=== PATIENT | female | born 1955 | race Caucasian/White ===

== ENCOUNTER 2022-03-30 19:05 | Inpatient (IN) ==
[2022-03-30] MEDS ORDERED: Naloxone 0.4 MG/ML INJ IVP PRN (22:11)
[2022-03-30] MEDS ORDERED: Melatonin 3 MG TABLET PO PRN (22:11)
[2022-03-30] MEDS ORDERED: Ondansetron ODT 4 MG TAB.RAPDIS SL PRN (22:11)
[2022-03-30] MEDS ORDERED: 0.9 % Sodium Chloride 1,000 ML IVC SCH (22:15)
[2022-03-30] MEDS ORDERED: *HR* HYDROmorphone (PF) 1 MG/ML SYRINGE IVP ONE (22:42)
[2022-03-30] MEDS ORDERED: *HR* Dextrose 50 % in Water (Syg) 50 ML SYRINGE IVP PRN (23:48)
[2022-03-30] MEDS ORDERED: D5% in Water 1,000 ML IVC PRN (23:48)
[2022-03-30] MEDS ORDERED: Dextrose Gel 15 GM/37.5 ML TUBE PO PRN ×2 (23:48)
[2022-03-31] MEDS: Insulin LISPRO 300 UNITS/3 ML VIAL SUBQ SCH ×4 (01:07→18:11)
[2022-03-31] MEDS ORDERED: *HR* HYDROmorphone (PF) 1 MG/ML SYRINGE IVP ONE (04:33)
[2022-03-31 05:41] LABS: Hemoglobin 8.5 g/dL (11.5-15.4); Mean Corpuscular HGB Conc 31.5 g/dL (31.6-35.5); Mean Corpuscular Volume 88.8 fL (83.0-100.0); Mean Platelet Volume 8.8 fL (9.4-12.4); Platelet Count 353 K/mcL (140-400); Red Blood Count 3.04 M/mcL (3.82-4.97); Red Cell Distribution Width 13.5 % (11.5-14.5); White Blood Count 8.1 K/mcL (4.3-11.1)
[2022-03-31 05:52] LABS: Prothrombin Time 11.1 Seconds (9.4-12.1)
[2022-03-31 05:55] LABS: Activated Partial Thrombo Time 28.3 Seconds (26.0-36.0)
[2022-03-31 06:02] LABS: Calcium 8.2 mg/dL (8.6-10.3); Magnesium 1.9 mg/dL (1.6-2.6); Phosphorous 3.8 mg/dL (2.7-4.5); Potassium 3.8 mEq/L (3.5-5.1)
[2022-03-31] MEDS ORDERED: Iopamidol - 300 50 ML VIAL ONE (07:21)
[2022-03-31] MEDS ORDERED: Clindamycin 900 MG/50 ML 900 MG/50 ML IV.SOLN IVPB ONE (07:21)
[2022-03-31] MEDS ORDERED: Lidocaine -MPF 2% 5 ML VIAL ONE (07:24)
[2022-03-31] MEDS ORDERED: *HR* FentaNYL (PF) 100 MCG/2 ML VIAL ONE (07:24)
[2022-03-31] MEDS ORDERED: Ondansetron 4 MG/2 ML VIAL ONE (07:24)
[2022-03-31] MEDS ORDERED: *HR* Midazolam HCl 2 MG/2 ML VIAL ONE (07:24)
[2022-03-31] MEDS ORDERED: *HR* Propofol 200 MG/20 ML VIAL IVP ONE (07:25)
[2022-03-31] MEDS ORDERED: *HR* HYDROmorphone PF 0.5 MG/0.5 ML SYRINGE IVP PRN (07:36)
[2022-03-31] MEDS ORDERED: *HR* OxyCODONE Immed Rel 5 MG TABLET PO PRN ×2 (07:36→19:30)
[2022-03-31] MEDS ORDERED: Ondansetron 4 MG/2 ML VIAL IVP PRN (07:36)
[2022-03-31] MEDS ORDERED: Promethazine 6.25 MG in Water for inj. (sterile) 20 ML IVPB PRN (07:36)
[2022-03-31] MEDS ORDERED: Ondansetron ODT 4 MG TAB.RAPDIS SL PRN (10:18)
[2022-03-31] MEDS ORDERED: Melatonin 3 MG TABLET PO PRN (10:18)
[2022-03-31] MEDS ORDERED: Dextrose Gel 15 GM/37.5 ML TUBE PO PRN ×2 (10:18)
[2022-03-31] MEDS ORDERED: D5% in Water 1,000 ML IVC PRN (10:18)
[2022-03-31] MEDS ORDERED: *HR* Dextrose 50 % in Water (Syg) 50 ML SYRINGE IVP PRN (10:18)
[2022-03-31] MEDS ORDERED: Naloxone 0.4 MG/ML INJ IVP PRN (10:18)
[2022-03-31] MEDS ORDERED: 0.9 % Sodium Chloride 1,000 ML IVC SCH (10:18)
[2022-03-31] MEDS: *HR* OxyCODONE Immed Rel 5 MG TABLET PO PRN (22:59)
[2022-04-01] MEDS: Insulin LISPRO 300 UNITS/3 ML VIAL SUBQ SCH ×4 (00:26→16:52)
[2022-04-01 02:55] LABS: Hematocrit 26.7 % (35.3-44.9); Hemoglobin 8.4 g/dL (11.5-15.4); Mean Corpuscular HGB Conc 31.5 g/dL (31.6-35.5); Mean Platelet Volume 8.7 fL (9.4-12.4); Platelet Count 370 K/mcL (140-400); Red Cell Distribution Width 13.5 % (11.5-14.5); White Blood Count 8.5 K/mcL (4.3-11.1)
[2022-04-01 03:23] LABS: Calcium 8.5 mg/dL (8.6-10.3); Potassium 3.8 mEq/L (3.5-5.1)
[2022-04-01] MEDS: *HR* OxyCODONE Immed Rel 5 MG TABLET PO PRN ×4 (07:55→21:43)
[2022-04-01] MEDS: Loratadine 10 MG TABLET PO SCH (07:55)
[2022-04-01] MEDS: Gabapentin 300 MG CAPSULE PO SCH ×4 (08:04→21:43)
[2022-04-01] MEDS: polyethylene glycoL 3350 17 GM POWD.PACK PO SCH (12:11)
[2022-04-02] MEDS: Insulin LISPRO 300 UNITS/3 ML VIAL SUBQ SCH ×2 (00:05→04:29)
[2022-04-02 02:16] LABS: Basophils % 0.5 %; Eosinophils # 0.2 K/mcL (0.0-0.6); Eosinophils % 3.2 %; Hematocrit 26.6 % (35.3-44.9); Hemoglobin 8.4 g/dL (11.5-15.4); Immature Granulocytes % 0.9 % (0-4); Lymphocytes % 27.5 %; Mean Corpuscular HGB Conc 31.6 g/dL (31.6-35.5); Mean Corpuscular Hemoglobin 27.8 pg (28.0-33.3); Mean Corpuscular Volume 88.1 fL (83.0-100.0); Mean Platelet Volume 8.5 fL (9.4-12.4); Monocytes # 0.5 K/mcL (0.0-1.3); Neutrophils # 4.5 K/mcL (1.6-8.9); Platelet Count 370 K/mcL (140-400); Red Blood Count 3.02 M/mcL (3.82-4.97); Red Cell Distribution Width 13.3 % (11.5-14.5); Segmented Neutrophils % 60.9 %; White Blood Count 7.4 K/mcL (4.3-11.1)
[2022-04-02 02:36] LABS: Calcium 8.6 mg/dL (8.6-10.3); Potassium 3.2 mEq/L (3.5-5.1)
[2022-04-02] MEDS: *HR* OxyCODONE Immed Rel 5 MG TABLET PO PRN (04:20)
[2022-04-02 08:10] VITALS: O2SAT 96
[2022-04-02] MEDS: polyethylene glycoL 3350 17 GM POWD.PACK PO SCH (08:19)
[2022-04-02] MEDS: Loratadine 10 MG TABLET PO SCH (08:19)
[2022-04-02] MEDS: Gabapentin 300 MG CAPSULE PO SCH (08:20)
[2022-04-02 11:19] VITALS: BP 146/85; PULSE 99; TEMP 97.9
== END 2022-04-02 11:43 | disposition home or self-care (01) | DRG 446 ==
LOC: 3ANU → SUATTDRO 21:30
PROVIDERS: ADMIT Student in an Organized Health Care Education/Training Program; ATTEND Nurse Practitioner